=== PATIENT | male | born 1960 | race African-American/Black ===

== ENCOUNTER 2016-02-21 06:03 | Emergency (ER) | payer OTHER ==
[2016-02-21] MEDS ORDERED: AMOXicillin 250 MG CAP ONE (06:20)
[2016-02-21] MEDS ORDERED: Naproxen 500 MG TAB ONE (06:20)
--- NOTE | 2016-02-21 06:43 | ERRECORD ---
[facility] EMERGENCY RECORD HPI TOOTHACHE (06:26 LLDO) CHIEF COMPLAINT: Patient presents for evaluation of toothache, Patient presents for evaluation of jaw swelling, Patient presents for evaluation of pt fractured a carious tooth, right upper molar. promptly got swelling and pain with radiation into right ear and right max sinus area. HISTORIAN: History provided by patient. LOCATION: Symptoms are generalized. TEETH: upper right 1st molar(#3), Caries noted in Broken Pain to. QUALITY: Pain is dull in nature, described as aching, described as BECOMES SHARP WITH MOVEMENT OR PALPATION. SEVERITY: Maximum severity of symptoms severe, Currently symptoms are moderate. TIME COURSE: Sudden onset of symptoms, Symptoms are worsening, are constant. ASSOCIATED WITH: Associated with facial pain, Associated with facial swelling. EXACERBATED BY: Patient's condition exacerbated by chewing, Patient's condition exacerbated by cold fluids, Patient's condition exacerbated by hot fluids. RELIEVED BY: Patient's condition relieved by nothing. ROS CONSTITUTIONAL: Historian reports fatigue. (06:29 LLDO) EYES: Negative eye review of systems, Historian denies eye pain, denies eye redness, denies eye discharge. (06:33 LLDO) ENT: Historian reports sinus pain, SEE HPI SEVERE DENTAL PAIN, Historian reports otalgia. (06:29 LLDO) MUSCULOSKELETAL: Negative musculoskeletal review of systems, Historian denies arthralgias, denies fall, denies injury, denies myalgias. (06:33 LLDO) NEUROLOGIC: Negative neurologic review of systems, Historian denies confusion, denies focal weakness, denies mental status changes, denies sensory changes. (06:33 LLDO) ALLERGIC/IMMUNOLOGIC: Normal allergy/immunologic system review, Historian denies eczema, denies environmental allergies, denies food allergies. (06:33 LLDO) PSYCHIATRIC: Negative psychiatric review of systems, Historian denies alcohol abuse, denies anxiety, denies depression, denies drug abuse, denies hallucinations. (06:33 LLDO) NOTES: All systems reviewed, negative except as described above. (06:29 LLDO) PAST MEDICAL HISTORY MEDICAL HISTORY: Past medical history includes history of hypertension, which has been treated-non compliant at this time. (06:12 JDEA) MALE SURGICAL HISTORY: ABD hernia repair , left hip replacement. (06:12 JDEA) &a-1R&a+25V*p+0X*v1226D*c202B*c15G*c2P*p-0X&a-25V&a+1R Name: Soy Cortes : 1960 M55 MedRec: [id number] AcctNum: [id number] Prepared: Юлия Feb 21, 2016 06:40 by Interface Page 1 of 3 pMD [facility] EMERGENCY RECORD SOCIAL HISTORY: Patient denies alcohol use, Patient denies drug use, Patient currently uses tobacco, chews tobacco, Lives at home, with family. (06:12 JDEA) NOTES: Nursing records reviewed, Agree with nursing records, Medication list reviewed. (06:32 LLDO) KNOWN ALLERGIES No Known Allergies CURRENT MEDICATIONS (06:11 JDEA) None VITAL SIGNS VITAL SIGNS: BP: 180/117, Pulse: 98, Resp: 20, Temp: 98.9 (Oral), Pain: 8, O2 sat: 95 on Room Air, Time: 02/21/2016 06:09. (06:09 JDEA) BP: 179/102, Pulse: 86, Resp: 18, Pain: 8, O2 sat: 96 on Room Air, Time: 02/21/2016 06:23. (06:23 JDEA) PHYSICAL EXAM CONSTITUTIONAL: Vital signs reviewed, Patient afebrile, Pulse normal, Blood pressure, BP ELEVATED, Respiratory rate normal, Patient appears, uncomfortable, Patient appears in pain, in moderate pain distress, INTERMITTENTLY SEVERE, Patient alert and oriented to person, place and time, been out of bp meds for several months. (06:30 LLDO) HEAD: Head exam normal, Head exam included findings of head atraumatic, normocephalic. (06:33 LLDO) EYES: Eye exam normal, Eye exam included findings of eyelids normal to inspection, Pupils equally round and reactive to light, Extraocular muscles intact. (06:33 LLDO) ENT: Mouth exam normal, Teeth with, dental caries, fractures, abscess, Sinus exam included findings of frontal sinuses normal, Maxillary sinuses with, tenderness on the right. (06:30 LLDO) NECK: Neck exam normal, Neck exam included findings of normal range of motion, Trachea midline, no meningeal signs, no tenderness. (06:33 LLDO) BACK: Back exam normal, Back exam included findings of normal inspection, range of motion normal. (06:33 LLDO) UPPER EXTREMITY: Upper extremity exam normal, Upper extremity exam included findings of inspection normal, Range of motion normal. (06:33 LLDO) LOWER EXTREMITY: Lower extremity exam normal, Lower extremity exam included findings of inspection normal, Range of motion normal. (06:33 LLDO) NEURO: Neuro exam normal, Neuro exam findings include patient oriented to person, place and time, Speech normal, Renny coma scale 15. (06:33 LLDO) SKIN: Skin exam normal, Skin exam included findings of skin warm, &a-1R&a+25V*p+0X*c0694I*c202B*c15G*c2P*p-0X&a-25V&a+1R Name: Soy Cortes : 1960 M55 MedRec: [id number] AcctNum: [id number] Prepared: Юлия Feb 21, 2016 06:40 by Interface Page 2 of 3 pMD [facility] EMERGENCY RECORD dry, and normal in color, no rash. (06:33 LLDO) PSYCHIATRIC: Psychiatric exam normal, Psychiatric exam included findings of patient oriented to person place and time, Normal affect, Judgment normal. (06:33 LLDO) MEDICATION ADMINISTRATION SUMMARY Drug Name: Naprosyn, Dose Ordered: 500 mg, Route: Oral, Status: Given, Time: 06:23 02/21/2016, Drug Name: amoxicillin, Dose Ordered: 500 mg, Route: Oral, Status: Given, Time: 06:22 02/21/2016, Detailed record available in Medication Service section. PROBLEM LIST No recorded problems DIAGNOSIS (06:22 LLDO) FINAL: PRIMARY: dental pain, ADDITIONAL: Hypertension. PRESCRIPTION (06:21 LLDO) Norvasc: TABLET : 10 mg : ORAL : Quantity: 1 Unit: tab(s) Route: ORAL Schedule: once a day Dispense: 30 May substitute. Refills: 2 . atenolol: TABLET : 50 mg : ORAL : Quantity: 1 Unit: tab(s) Route: ORAL Schedule: once a day Dispense: 30 May substitute. Refills: 2 . amoxicillin: CAPSULE (HARD, SOFT, ETC.) : 500 mg : ORAL : Quantity: 1 Unit: cap(s) Route: ORAL Schedule: 3 times a day Dispense: 30 May substitute. Refills: No Refills . Tylenol-Codeine #3: TABLET : 300 mg-30 mg : ORAL : Quantity: 1-2 Unit: tab(s) Route: ORAL Schedule: every 4 hours prn Dispense: 24 Unit: tab(s) May substitute. Refills: No Refills . DISPOSITION PATIENT: Disposition Type: Discharge, Disposition: *Discharge Home. (06:19 DORENE) Patient left the department. (06:33 EDWIN) Starr: EDWIN=ANNELIESE Meadows, Grace CATHERINE=MD Netta, Arnold &a-1R&a+25V*p+0X*r2595Y*c202B*c15G*c2P*p-0X&a-25V&a+1R Name: Soy Cortes Kristine : 1960 M55 MedRec: [id number] AcctNum: [id number] Prepared: Юлия Feb 21, 2016 06:40 by Interface Page 3 of 3 pMD MTDD
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
== END 2016-02-21 06:31 | disposition home or self-care (01) ==
LOC: MADERS 06:03
DX: K04.7 Periapical abscess without sinus (principal); K03.81 Cracked tooth; I10 Essential (primary) hypertension; F17.220 Nicotine dependence, chewing tobacco, uncomplicated
CPT/HCPCS: 99282

== ENCOUNTER 2016-03-24 05:27 | Emergency (ER) | payer OTHER | END 2016-03-24 06:10 | disposition home or self-care (01) | LOC: MADERS 05:27 | DX: J01.00 Acute maxillary sinusitis, unspecified (principal); I10 Essential (primary) hypertension; F17.220 Nicotine dependence, chewing tobacco, uncomplicated; Z79.899 Other long term (current) drug therapy | CPT/HCPCS: 99283 ==

== ENCOUNTER 2016-04-09 06:16 | Emergency (ER) | payer OTHER | END 2016-04-09 06:40 | disposition home or self-care (01) | LOC: MADERS 06:16 | DX: J30.9 Allergic rhinitis, unspecified (principal); I10 Essential (primary) hypertension; Z79.899 Other long term (current) drug therapy | CPT/HCPCS: 99283 ==

== ENCOUNTER 2016-04-25 05:38 | Emergency (ER) | payer OTHER ==
[2016-04-25] MEDS ORDERED: AMOXicillin 250 MG CAP ONE (06:01)
== END 2016-04-25 06:05 | disposition home or self-care (01) ==
LOC: MADERS 05:38
DX: K08.89 Other specified disorders of teeth and supporting structures (principal); I10 Essential (primary) hypertension; F17.210 Nicotine dependence, cigarettes, uncomplicated; Z79.899 Other long term (current) drug therapy
CPT/HCPCS: 99282

== ENCOUNTER 2016-05-11 08:59 | Emergency (ER) | payer OTHER | END 2016-05-11 09:56 | disposition home or self-care (01) | LOC: MADERS 08:59 | DX: R09.81 Nasal congestion (principal); I10 Essential (primary) hypertension; F17.220 Nicotine dependence, chewing tobacco, uncomplicated; Z79.899 Other long term (current) drug therapy ==

== ENCOUNTER 2016-06-10 14:48 | Emergency (ER) | payer OTHER ==
[2016-06-10] MEDS ORDERED: Ibuprofen 800 MG TAB ONE (15:09)
[2016-06-10] MEDS ORDERED: Clindamycin 150 MG CAP ONE (15:09)
== END 2016-06-10 15:20 | disposition home or self-care (01) ==
LOC: MADERS 14:48
DX: K04.7 Periapical abscess without sinus (principal); I10 Essential (primary) hypertension; F17.220 Nicotine dependence, chewing tobacco, uncomplicated; Z79.899 Other long term (current) drug therapy
CPT/HCPCS: 99282

== ENCOUNTER 2016-07-22 05:38 | Emergency (ER) | payer OTHER ==
[2016-07-22] MEDS ORDERED: AMOXicillin 250 MG CAP ONE (06:38)
[2016-07-22] MEDS ORDERED: Oxymetazoline HCl 0.05% ( 15 ML ) ONE (06:38)
[2016-07-22] MEDS ORDERED: Benzonatate 100 MG CAP ONE (06:38)
== END 2016-07-22 06:47 | disposition home or self-care (01) ==
LOC: MADERS 05:38
DX: J01.90 Acute sinusitis, unspecified (principal); H65.91 Unspecified nonsuppurative otitis media, right ear; I10 Essential (primary) hypertension; F17.220 Nicotine dependence, chewing tobacco, uncomplicated; Z79.899 Other long term (current) drug therapy
CPT/HCPCS: 99283

== ENCOUNTER 2016-08-07 00:10 | Emergency (ER) | payer OTHER ==
[2016-08-07] MEDS ORDERED: Acetaminophen 500 MG TAB ONE (01:09)
[2016-08-07] MEDS ORDERED: Ketorolac Tromethamine 30 MG/ML VIAL ONE (01:09)
--- NOTE | 2016-08-07 10:31 | RAD ---
RIGHT SHOULDER THREE VIEWS HISTORY: Shoulder pain. FINDINGS: There are no signs of fracture or dislocation. No significant arthritic change. IMPRESSION: Negative right shoulder. POS: [facility]
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
== END 2016-08-07 01:35 | disposition home or self-care (01) ==
LOC: MADERS 00:10
DX: S46.911A Strain of unspecified muscle, fascia and tendon at shoulder and upper arm level, right arm, initial encounter (principal); M54.2 Cervicalgia; I10 Essential (primary) hypertension; F17.220 Nicotine dependence, chewing tobacco, uncomplicated; Z79.899 Other long term (current) drug therapy; V48.6XXA Car passenger injured in noncollision transport accident in traffic accident, initial encounter
CPT/HCPCS: 70450; 72125; 96374; G0390; J1885

== ENCOUNTER 2016-08-25 06:50 | Emergency (ER) | payer OTHER | END 2016-08-25 07:17 | disposition home or self-care (01) | LOC: MADERS 06:50 | DX: T78.40XA Allergy, unspecified, initial encounter (principal); I10 Essential (primary) hypertension; F17.220 Nicotine dependence, chewing tobacco, uncomplicated | CPT/HCPCS: 99282 ==

== ENCOUNTER 2016-11-26 05:54 | Emergency (ER) | payer OTHER, SELFPAY ==
[2016-11-26] MEDS ORDERED: Ketorolac Tromethamine 60 MG/2 ML VIAL ONE (06:25)
[2016-11-26] MEDS ORDERED: Mag-Al Plus 1200 MG/1200 MG/120 MG/30 ML UDCUP ONE (06:25)
[2016-11-26] MEDS ORDERED: cloNIDine 0.1 MG TAB ONE (06:25)
== END 2016-11-26 06:37 | disposition home or self-care (01) ==
LOC: MADERS 05:54
DX: A08.4 Viral intestinal infection, unspecified (principal); I10 Essential (primary) hypertension; F17.220 Nicotine dependence, chewing tobacco, uncomplicated; Z79.899 Other long term (current) drug therapy
CPT/HCPCS: 99283; J1885

== ENCOUNTER 2016-12-05 11:09 | Emergency (ER) | payer SELFPAY | END 2016-12-05 12:07 | disposition home or self-care (01) | LOC: MADERS 11:09 | DX: R10.83 Colic (principal); I10 Essential (primary) hypertension; F17.220 Nicotine dependence, chewing tobacco, uncomplicated | CPT/HCPCS: 99283 ==

== ENCOUNTER 2017-01-15 12:27 | Emergency (ER) | payer BC, SELFPAY | END 2017-01-15 13:01 | disposition home or self-care (01) | LOC: MADERS 12:27 | DX: T88.1XXA Other complications following immunization, not elsewhere classified, initial encounter (principal); J02.9 Acute pharyngitis, unspecified | CPT/HCPCS: 99283 ==

== ENCOUNTER 2017-03-11 10:31 | Emergency (ER) | payer BC, SELFPAY | END 2017-03-11 11:45 | disposition home or self-care (01) | LOC: MADERS 10:31 | DX: J11.1 Influenza due to unidentified influenza virus with other respiratory manifestations (principal); I10 Essential (primary) hypertension; F17.220 Nicotine dependence, chewing tobacco, uncomplicated; Z79.899 Other long term (current) drug therapy | CPT/HCPCS: 99283 ==

== ENCOUNTER 2017-04-01 07:51 | Emergency (ER) | payer SELFPAY | END 2017-04-01 08:50 | disposition home or self-care (01) | LOC: MADERS 07:51 | DX: M62.830 Muscle spasm of back (principal); I10 Essential (primary) hypertension; F17.220 Nicotine dependence, chewing tobacco, uncomplicated | CPT/HCPCS: 99283 ==

== ENCOUNTER 2017-05-06 07:49 | Emergency (ER) | payer BC, SELFPAY ==
[2017-05-06] MEDS ORDERED: Cephalexin 500 MG CAP ONE (10:11)
[2017-05-06] MEDS ORDERED: Oxymetazoline HCl 0.05% ( 15 ML ) ONE (10:11)
== END 2017-05-06 10:16 | disposition home or self-care (01) ==
LOC: MADERS 07:49
DX: J01.90 Acute sinusitis, unspecified (principal); F17.210 Nicotine dependence, cigarettes, uncomplicated; I10 Essential (primary) hypertension; Z79.899 Other long term (current) drug therapy
CPT/HCPCS: 99283

== ENCOUNTER 2017-09-03 12:18 | Emergency (ER) | payer SELFPAY | END 2017-09-03 12:40 | disposition home or self-care (01) | LOC: MADERS 12:18 | DX: R09.81 Nasal congestion (principal); R19.7 Diarrhea, unspecified; I10 Essential (primary) hypertension; F17.210 Nicotine dependence, cigarettes, uncomplicated; Z79.899 Other long term (current) drug therapy | CPT/HCPCS: 99283 ==

== ENCOUNTER 2017-11-29 21:00 | Emergency (ER) | payer BC ==
--- NOTE | 2017-11-29 21:54 | RAD ---
AP VIEW PELVIS INCLUDING AP VIEW LEFT HIP: 11/29/17 HISTORY: Left hip pain after slipping and falling one day ago. FINDINGS: There is a left total hip prosthesis without evidence of a hardware complication. No fracture or disl ocation is seen. Heterotopic ossification is seen in the seen adjacent to the left hip. Phleboliths o verlie the pelvis with calcifications overlying the scrotum. IMPRESSION: 1. No acute osseous abnormality. 2. Left total hip prosthesis. POS: [facility]
== END 2017-11-29 21:59 | disposition home or self-care (01) ==
LOC: MADERS 21:00
DX: S30.0XXA Contusion of lower back and pelvis, initial encounter (principal); I10 Essential (primary) hypertension; F17.210 Nicotine dependence, cigarettes, uncomplicated; J30.2 Other seasonal allergic rhinitis; W01.0XXA Fall on same level from slipping, tripping and stumbling without subsequent striking against object, initial encounter
CPT/HCPCS: 72170; J1040

== ENCOUNTER 2017-12-15 08:25 | Emergency (ER) | payer BC ==
--- NOTE | 2017-12-15 09:48 | CT ---
CT ABDOMEN AND PELVIS WITHOUT IV CONTRAST: Date: 12/15/17 INDICATION: Abdominal pain for 2 days with a history of hernia. COMPARISON: None. FINDINGS: Lung bases are clear. The unopacified liver, spleen, pancreas, and adrenal glands are normal appearing. No renal or uretera l calculus is evident. No hydronephrosis is demonstrated. No enlarged lymph nodes are evident. There is a mild amount of retained stool within the colon. There is a normal appendix in the right lower quadrant of the abdomen. There is postprocedural changes of left total hip prosthesis. There is scattered degenerative change. IMPRESSION: 1. No CT explanation for the patient's abdominal pain. 2. There is a moderate amount of retained stool within the colon. 3. No renal or ureteral calculus demonstrated. 4. Normal appendix. POS: [facility]
== END 2017-12-15 09:59 | disposition home or self-care (01) ==
LOC: MADERS 08:25
DX: R10.30 Lower abdominal pain, unspecified (principal); R19.7 Diarrhea, unspecified; I10 Essential (primary) hypertension; F32.9 Major depressive disorder, single episode, unspecified; F17.210 Nicotine dependence, cigarettes, uncomplicated; Z79.899 Other long term (current) drug therapy
CPT/HCPCS: 74176

== ENCOUNTER 2017-12-24 05:19 | Emergency (ER) | payer BC | END 2017-12-24 05:54 | disposition home or self-care (01) | LOC: MADERS 05:19 | DX: R10.30 Lower abdominal pain, unspecified (principal); I10 Essential (primary) hypertension; F17.210 Nicotine dependence, cigarettes, uncomplicated; F32.9 Major depressive disorder, single episode, unspecified; Z79.899 Other long term (current) drug therapy | CPT/HCPCS: 99283 ==

== ENCOUNTER 2018-05-01 08:08 | Emergency (ER) | payer BC | END 2018-05-01 09:40 | disposition home or self-care (01) | LOC: MADERS 08:08 | DX: J30.9 Allergic rhinitis, unspecified (principal); H92.09 Otalgia, unspecified ear; I10 Essential (primary) hypertension; F32.9 Major depressive disorder, single episode, unspecified; F17.210 Nicotine dependence, cigarettes, uncomplicated; J30.2 Other seasonal allergic rhinitis; Z79.899 Other long term (current) drug therapy | CPT/HCPCS: 99283 ==

== ENCOUNTER 2018-08-16 13:18 | Emergency (ER) | payer BC | END 2018-08-16 13:45 | disposition short-term general hospital (02) | LOC: MADERS 13:18 | DX: J30.1 Allergic rhinitis due to pollen (principal); I10 Essential (primary) hypertension; F32.9 Major depressive disorder, single episode, unspecified; F17.210 Nicotine dependence, cigarettes, uncomplicated; Z79.899 Other long term (current) drug therapy | CPT/HCPCS: 99281 ==

== ENCOUNTER 2018-09-24 13:28 | Emergency (ER) | payer BC, OTHER | END 2018-09-24 14:09 | disposition home or self-care (01) | LOC: MADERS 13:28 | DX: R05 Cough (principal); I10 Essential (primary) hypertension; F32.9 Major depressive disorder, single episode, unspecified; F17.220 Nicotine dependence, chewing tobacco, uncomplicated; Z79.899 Other long term (current) drug therapy | CPT/HCPCS: 99281 ==